=== PATIENT | male | born 1980 | race Caucasian/White ===

== ENCOUNTER 2017-10-23 10:22 | Outpatient (CLI) | payer MEDICAID ==
[2017-10-23 12:52] LABS: BASOPHILS % (AUTO) 0.4 %; EOSINOPHILS # (AUTO) 0.1 10^3/uL (0.0-0.7); EOSINOPHILS % (AUTO) 0.8 %; HGB - HEMOGLOBIN 14.1 g/dL (14.0-18.0); LYMPHOCYTES # (AUTO) 2.4 10^3/uL (1.5-3.5); LYMPHOCYTES % (AUTO) 23.2 %; MEAN CORPUSCULAR HEMOGLOBIN 26.5 pg (27.0-31.0); MEAN CORPUSCULAR HGB CONC 33.6 g/dL (32.0-36.0); MEAN PLATELET VOLUME 9.5 fL (7.4-11.4); MONOCYTES # (AUTO) 0.8 10^3/uL (0.0-1.0); MONOCYTES % (AUTO) 7.9 %; NEUTROPHILS # (AUTO) 6.9 10^3/uL (1.5-6.6); NEUTROPHILS % (AUTO) 67.7 %; PLT - PLATELET COUNT 194 10^3/uL (130-450); RED BLOOD COUNT 5.32 10^6/uL (4.70-6.10); RED CELL DISTRIBUTION WIDTH 14.9 % (12.0-15.0); WHITE BLOOD COUNT 10.2 x10^3/uL (4.8-10.8)
[2017-10-23 12:59] LABS: HB2 TOTAL 15.3 g/dL; HEMOGLOBIN A1C 1.24 g/dL; HEMOGLOBIN A1C % 9.6 % (4.6-6.2)
[2017-10-23 13:17] LABS: ALBUMIN 3.9 g/dL (3.2-5.5); ALBUMIN/GLOBULIN RATIO 1.1 (1.0-2.2); ALKALINE PHOSPHATASE 77 IU/L (42-121); ALT ALANINE AMINOTRANSFERASE 29 IU/L (10-60); AST ASPARTATE AMINOTRANSFERASE 24 IU/L (10-42); BILIRUBIN,TOTAL 0.4 mg/dL (0.2-1.0); BUN - BLOOD UREA NITROGEN 15 mg/dL (6-20); CALCIUM 8.7 mg/dL (8.5-10.3); CARBON DIOXIDE - CO2 22 mmol/L (21-32); CHLORIDE 100 mmol/L (101-111); CHOLESTEROL 185 mg/dL; CREATININE 0.7 mg/dL (0.6-1.2); GFR - MDRD 126 (>89); GLUCOSE 235 mg/dL (70-100); HDL CHOLESTEROL 37 mg/dL; LDL CHOLESTEROL,CALCULATED 108 mg/dL; LDL/HDL RATIO 2.9 (<3.6); SODIUM 133 mmol/L (135-145); TOTAL PROTEIN 7.6 g/dL (6.7-8.2); VLDL CHOLESTEROL 40 mg/dL
== END 2017-10-23 10:23 | disposition home or self-care (01) ==
LOC: LAB.N 10:22
PROVIDERS: ATTEND Nurse Practitioner Gerontology
DX: E11.9 Type 2 diabetes mellitus without complications (principal); Z13.9 Encounter for screening, unspecified
CPT/HCPCS: 36415; 80053; 80061; 83036; 84443; 85025

== ENCOUNTER 2018-04-05 16:44 | Outpatient (CLI) | payer MEDICAID ==
[2018-04-05 18:16] LABS: HB2 TOTAL 15.3 g/dL; HEMOGLOBIN A1C 1.19 g/dL; HEMOGLOBIN A1C % 9.3 % (4.6-6.2)
== END 2018-04-05 16:45 | disposition home or self-care (01) ==
LOC: LAB 16:44
PROVIDERS: ATTEND Nurse Practitioner Gerontology
DX: E11.9 Type 2 diabetes mellitus without complications (principal)
CPT/HCPCS: 36415; 83036

== ENCOUNTER 2018-07-10 14:10 | Outpatient (CLI) | payer MEDICAID ==
[2018-07-10 19:17] LABS: HB2 TOTAL 14.7 g/dL; HEMOGLOBIN A1C 0.8 g/dL; HEMOGLOBIN A1C % 7.1 % (4.6-6.2)
== END 2018-07-10 14:11 | disposition home or self-care (01) ==
LOC: LAB.N 14:10
PROVIDERS: ATTEND Physician Assistant Medical
DX: E11.65 Type 2 diabetes mellitus with hyperglycemia (principal)
CPT/HCPCS: 36415; 83036

== ENCOUNTER 2018-10-25 15:04 | Outpatient (CLI) | payer MEDICAID ==
[2018-10-25 19:39] LABS: HB2 TOTAL 15.4 g/dL; HEMOGLOBIN A1C 1.04 g/dL; HEMOGLOBIN A1C % 8.3 % (4.6-6.2)
== END 2018-10-25 23:59 | disposition home or self-care (01) ==
LOC: LAB.N 15:04
PROVIDERS: ATTEND Physician Assistant Medical
DX: E11.9 Type 2 diabetes mellitus without complications (principal)
CPT/HCPCS: 36415; 83036

== ENCOUNTER 2019-02-04 08:00 | Outpatient (CLI) | payer MEDICAID ==
[2019-02-04 19:48] LABS: HB2 TOTAL 15.5 g/dL; HEMOGLOBIN A1C 1.51 g/dL; HEMOGLOBIN A1C % 11.1 % (4.6-6.2)
== END 2019-02-04 23:59 | disposition home or self-care (01) ==
LOC: LAB.N 08:00
PROVIDERS: ATTEND Physician Assistant Medical
DX: E11.9 Type 2 diabetes mellitus without complications (principal)
CPT/HCPCS: 36415; 83036

== ENCOUNTER 2019-09-04 11:37 | Outpatient (CLI) | payer MEDICAID ==
[2019-09-04 19:07] LABS: CALCIUM 8.7 mg/dL (8.5-10.3); CREATININE 0.6 mg/dL (0.6-1.2)
[2019-09-04 19:14] LABS: HB2 TOTAL 15.4 g/dL; HEMOGLOBIN A1C 1.42 g/dL; HEMOGLOBIN A1C % 10.6 % (4.6-6.2)
== END 2019-09-04 23:59 | disposition home or self-care (01) ==
LOC: LAB.N 11:37
PROVIDERS: ATTEND Physician Assistant Medical
DX: E11.65 Type 2 diabetes mellitus with hyperglycemia (principal)
CPT/HCPCS: 36415; 80048; 83036

== ENCOUNTER 2019-12-02 22:01 | Outpatient (CLI) | payer MEDICAID ==
[2019-12-02 22:44] LABS: CALCIUM 8.6 mg/dL (8.5-10.3); CREATININE 0.7 mg/dL (0.6-1.2)
[2019-12-02 23:29] LABS: HB2 TOTAL 13.8 g/dL; HEMOGLOBIN A1C 1.17 g/dL; HEMOGLOBIN A1C % 9.9 % (4.6-6.2)
== END 2019-12-02 22:02 | disposition home or self-care (01) ==
LOC: LAB 22:01
PROVIDERS: ATTEND Physician Assistant Medical
DX: E11.65 Type 2 diabetes mellitus with hyperglycemia (principal)
CPT/HCPCS: 36415; 80048; 83036

== ENCOUNTER 2020-08-04 12:05 | Outpatient (CLI) | payer MEDICAID ==
[2020-08-04 18:40] LABS: BASOPHILS % (AUTO) 0.6 %; EOSINOPHILS # (AUTO) 0.1 10^3/uL (0.0-0.7); EOSINOPHILS % (AUTO) 0.7 %; HGB - HEMOGLOBIN 15.2 g/dL (14.0-18.0); LYMPHOCYTES # (AUTO) 2.1 10^3/uL (1.5-3.5); LYMPHOCYTES % (AUTO) 30.6 %; MEAN CORPUSCULAR HEMOGLOBIN 26.4 pg (27.0-31.0); MEAN CORPUSCULAR HGB CONC 31.4 g/dL (32.0-36.0); MEAN CORPUSCULAR VOLUME 84.2 fL (80.0-94.0); MEAN PLATELET VOLUME 11.5 fL (7.4-11.4); MONOCYTES # (AUTO) 0.6 10^3/uL (0.0-1.0); NEUTROPHILS # (AUTO) 4.2 10^3/uL (1.5-6.6); NEUTROPHILS % (AUTO) 59.7 %; PLT - PLATELET COUNT 207 10^3/uL (130-450); RED BLOOD COUNT 5.75 10^6/uL (4.70-6.10); RED CELL DISTRIBUTION WIDTH 13.2 % (12.0-15.0)
[2020-08-04 18:45] LABS: ALBUMIN 3.9 g/dL (3.2-5.5); ALKALINE PHOSPHATASE 95 IU/L (42-121); ALT ALANINE AMINOTRANSFERASE 20 IU/L (10-60); AST ASPARTATE AMINOTRANSFERASE 19 IU/L (10-42); BILIRUBIN,TOTAL 0.9 mg/dL (0.2-1.0); BUN - BLOOD UREA NITROGEN 23 mg/dL (6-20); CALCIUM 9.3 mg/dL (8.5-10.3); CARBON DIOXIDE - CO2 24 mmol/L (21-32); CHLORIDE 100 mmol/L (101-111); CHOL/HDL RATIO 5.4 (<5.0); CHOLESTEROL 231 mg/dL; CREATININE 0.6 mg/dL (0.6-1.2); GLUCOSE 434 mg/dL (70-100); HDL CHOLESTEROL 43 mg/dL; LDL CHOLESTEROL,CALCULATED 121 mg/dL; LDL/HDL RATIO 2.8 (<3.6); SODIUM 135 mmol/L (135-145); TOTAL PROTEIN 7.9 g/dL (6.7-8.2); VLDL CHOLESTEROL 67 mg/dL
[2020-08-04 20:26] LABS: HEMOGLOBIN A1c% 11.5 % (4.27-6.07)
== END 2020-08-04 23:59 | disposition home or self-care (01) ==
LOC: LAB.WCP 12:05
PROVIDERS: ATTEND Nurse Practitioner Family
DX: E11.9 Type 2 diabetes mellitus without complications (principal)
CPT/HCPCS: 36415; 80053; 80061; 83036; 83721; 84443; 85025

== ENCOUNTER 2020-11-02 11:33 | Outpatient (CLI) | payer MEDICAID ==
--- NOTE | 2020-11-02 12:41 | XRAY Report ---
PROCEDURE: Foot 3 View LT INDICATIONS: FOOT,ANKLE PAIN LEFT TECHNIQUE: 3 views of the foot were acquired. COMPARISON: None FINDINGS: Bones: No fractures or dislocations. Osteoarthritic changes are noted in talonavicular joint with j oint space narrowing, subchondral sclerosis and prominent dorsal marginal osteophyte formation. Osteo arthritic changes are also noted involving navicular cuneiform joints with dorsal marginal osteophyte formation. Well-defined dorsal calcaneal enthesophyte is seen. No suspicious bony lesions. Soft tissues: No tibiotalar joint effusion. Achilles tendon appears normal. IMPRESSION: Osteoarthritic changes over dorsal marginal midfoot and hindfoot as above. No fracture or dislocation . Reviewed by: Jorge Denney MD on 11/02/2020 12:40 PM PST Approved by: Jorge Denney MD on 11/02/2020 12:40 PM PST Station ID: [id number]
--- NOTE | 2020-11-02 12:42 | XRAY Report ---
PROCEDURE: Ankle 3 View LT INDICATIONS: FOOT,ANKLE PAIN LEFT TECHNIQUE: 3 views of the ankle were acquired. COMPARISON: None FINDINGS: Bones: No acute fractures or dislocations. Small enthesophyte formation involving medial aspect of medial malleolus tip is seen consistent with old healed avulsion injury. Well-defined and dorsal calc aneal enthesophyte is seen. Ankle mortise is normally aligned. No suspicious bony lesions. Soft tissues: No tibiotalar joint effusion. Achilles tendon appears normal. IMPRESSION: No ankle fracture or dislocation. Likely old avulsion injury involving medial malleolus tip. Small dorsal calcaneal enthesophyte. Intact ankle mortise. Reviewed by: Jorge Denney MD on 11/02/2020 12:41 PM PST Approved by: Jorge Denney MD on 11/02/2020 12:41 PM PST Station ID: [id number]
== END 2020-11-02 11:34 | disposition home or self-care (01) ==
LOC: DI 11:33
PROVIDERS: ATTEND Nurse Practitioner Family
DX: M19.072 Primary osteoarthritis, left ankle and foot (principal); M77.32 Calcaneal spur, left foot

== ENCOUNTER 2020-11-04 08:00 | Outpatient (CLI) | payer MEDICAID ==
[2020-11-04 19:23] LABS: CALCIUM 8.6 mg/dL (8.5-10.3); CREATININE 0.6 mg/dL (0.6-1.2)
[2020-11-04 21:11] LABS: HEMOGLOBIN A1c% 9.4 % (4.27-6.07)
== END 2020-11-04 23:59 | disposition home or self-care (01) ==
LOC: LAB.WCP 08:00
PROVIDERS: ATTEND Nurse Practitioner Family
DX: E11.65 Type 2 diabetes mellitus with hyperglycemia (principal)
CPT/HCPCS: 36415; 80048; 83036